=== PATIENT | male | born 1985 | race Caucasian/White ===

== ENCOUNTER 2017-01-12 22:43 | Emergency (ER) | payer OTHER ==
[~2017-01-12] VITALS: Ht 170.2 cm; Wt 76.6 kg
[~2017-01-12 22:43] MED LIST: PREVACID30 MG PO; ULTRAM50 MG PO
[2017-01-13] MEDS ORDERED: SKELAXIN800 MG PO (00:52)
[2017-01-13] MEDS ORDERED: NORCO 5/3251 TABLET PO (00:52)
[2017-01-13 01:20] VITALS: BP 122/96
== END 2017-01-13 01:31 | disposition home or self-care (01) ==
LOC: EXP 22:43 → EME 22:43 → EXP 01-13 01:31
DX: S29.011A Strain of muscle and tendon of front wall of thorax, initial encounter (principal); X50.0XXA Overexertion from strenuous movement or load, initial encounter; Y93.89 Activity, other specified; Z87.891 Personal history of nicotine dependence
CPT/HCPCS: 99281; 99283